=== PATIENT | male | born 1945 | race Caucasian/White ===

== ENCOUNTER 2020-02-26 13:10 | Emergency (ER) | payer OTHER ==
--- NOTE | 2020-02-26 13:21 | PDOC ---
History of Present Illness - General Chief Complaint: Lightheaded Stated Complaint: unknown, cardiology issue x 5 years Time Seen by Provider: 02/26/20 13:12 History Source: Patient Exam Limitations: No Limitations - History of Present Illness Initial Comments: 75 year old male with PMH HTN, HLD, prostate CA, atrial fibrillation on Xarelto sent to ED from pain management clinic for abnormal EKG. Pt reported he has had no new symptoms lately, denied chest pain, shortness of breath, vomiting, lightheadedness, dizziness, passing out, recent illness or any other symptoms. Pt reported he had the original EKG performed at his pain management doctors office on 02/01/20, but the doctor was unable to get into contact with him. He returned to the office today, where another EKG was performed showing atrial fibrillation, prompting his pain management physician to send him to the ED. He brought both of those EKGs with him today. Pt denied all complaints. ROS General: denied fever, chills, generalized weakness. HEENT: denied sore throat, rhinorrhea, ear pain. Cardiovascular: denied chest pain, palpitations, syncope, diaphoresis. Respiratory: denied shortness of breath, cough, sputum production, hemoptysis. Gastrointestinal: denied abdominal pain, nausea, vomiting, diarrhea, constipation, blood in stool. Genitourinary: denied dysuria, increased urinary frequency, hematuria, urinary incontinence, flank pain. Back: denied back pain. Musculoskeletal: denied joint pain, muscle pain, joint swelling. Neurological: denied headache, dizziness, numbness, tingling, weakness. Integumentary: denied rash, laceration, abrasion. Hematologic/Lymphatic: denied bruising or bleeding. PE Constitutional: Well-nourished, Well-developed, appearing stated age. HEENT: head is normocephalic, atraumatic. EOMI. PERRLA. Neck: supple. Full ROM. Cardiovascular: irregularly irrregular heart rhythm. no tachycardia. Normal S1 and S2. no murmurs. no pericardial friction rub. Respiratory: clear to auscultation bilaterally. no crackles, rhonchi or wheezing. no stridor. Gastrointestinal: soft, flat, nontender. normal bowel sounds. no rebound, guarding, or masses. Extremities: peripheral pulses intact and equal. no lower extremity edema noted. Neurological: CN 2-12 grossly intact. moves all four extremities. Psych: awake, alert, oriented x3. follows commands. answers questions jimmy ropriately. Past History - Medical History Allergies/Adverse Reactions: Allergies Allergy/AdvReac Type Severity Reaction Status Date / Time No Known Allergies Allergy Verified 02/26/20 13:12 Home Medications: Ambulatory Orders Amlodipine Besylate/Benazepril [Lotrel 10-20 mg Capsule] 1 each PO DAILY 02/24/15 Atorvastatin Ca [Lipitor -] 20 mg PO HS 02/24/15 Furosemide 20 mg PO DAILY 02/24/15 HTN: Yes Hypercholesterolemia: Yes - Psycho-Social/Smoking History Smoking History: Never smoked Medical Decision Making - Medical Decision Making 75 year old male with above PMH sent to ED From pain management for abnormal EKG. Initial Vital Signs Temp Pulse Resp BP Pulse Ox 98.3 F 79 20 139/83 97 02/26/20 13:11 02/26/20 13:11 02/26/20 13:11 02/26/20 13:11 02/26/20 13:11 EKG performed on 02/01/20 shows atrial fibrillation with a rate in the 70s. EKG performed out patient on 02/26/20 shows atrial fibrillation with a rate in the 70s. EKG performed today at [facility] shows atrial fibrillation without rapid ventricular response. Pt has no complaints. Atrial fibrillation likely to be chronic in nature, pt to follow up with PCP and cardiology. Will provide cardiology referral. Discharge - Discharge Information Problems reviewed: Yes Clinical Impression/Diagnosis: Atrial fibrillation Condition: Stable Disposition: HOME - Admission No - Follow up/Referral Referrals: Ronn Meng MD [Staff Physician] - Tae Marsh MD [Staff Physician] - - Patient Discharge Instructions Patient Printed Discharge Instructions: DI for Atrial Fibrillation Additional Instructions: You have an irregular heart rhythm - called atrial fibrillation. When this heart rate is slow, it is not dangerous. You are already anticoagulated - or on a blood thinner - which will protect you from blood clots coming from the heart. Follow up with a repair service dispatcher within 3 days, regarding your ER visit and EKGs. I have provided you with a referral. Return to the ER for chest pain, shortness of breath, vomiting, lightheadedness, increasing swelling of your legs. - Post Discharge Activity
[2020-02-26 13:23] VITALS: BP 139/83; PULSE 79; TEMP 98.3; BMI 37.3
--- NOTE | 2020-02-26 13:38 | PDOC ---
Attending Attestation - Resident Resident Name: Lamar Nunez - ED Attending Attestation I have performed the following: I have examined & evaluated the patient, The case was reviewed & discussed with the resident, I agree w/resident's findings & plan, Exceptions are as noted - HPI HPI: 02/26/20 13:38 75 M with h/o HTN, HLD, prostate CA, afib on xarelto, presents to ED after being referred by his pain management doctor for atrial fibrillation. Per pt, he has carried this diagnosis for years. Denies any new complaints today. Denies CP/SOB/palpitations. I spoke with pt's pain management doctor, who believed his atrial fibrillation to be new. - Physicial Exam PE: 02/26/20 13:40 See resident exam - Medical Decision Making 02/26/20 13:40 75 M here for evaluation of his atrial fibrillation. This is a known issue. Pt is rate controlled and appropriately anticoagulated. No complaints today. No indication for further evaluation. - F/u cardiology Pt is well appearing, with normal vitals. Clinically stable for DC at this time. I discussed the physical exam findings, ancillary test results and final diagnoses with the patient. I answered all of the patient's questions. The patient was satisfied with the care received and felt comfortable with the discharge plan and treatment plan. The patient agrees to follow up with the primary care physician within 24-72 hours. Discharge - Discharge Information Problems reviewed: Yes Clinical Impression/Diagnosis: Atrial fibrillation Condition: Stable Disposition: HOME - Follow up/Referral Referrals: Tae Marsh MD [Staff Physician] - Ronn Meng MD [Staff Physician] - - Patient Discharge Instructions Patient Printed Discharge Instructions: DI for Atrial Fibrillation Additional Instructions: You have an irregular heart rhythm - called atrial fibrillation. When this heart rate is slow, it is not dangerous. You are already anticoagulated - or on a blood thinner - which will protect you from blood clots coming from the heart. Follow up with a neonatal icu coordinator within 3 days, regarding your ER visit and EKGs. I have provided you with a referral. Return to the ER for chest pain, shortness of breath, vomiting, lightheadedness, increasing swelling of your legs. - Post Discharge Activity
--- NOTE | 2020-02-26 15:08 | EKG ---
Test Reason : Blood Pressure : / mmHG Vent. Rate : 080 BPM Atrial Rate : 081 BPM P-R Int : 000 ms QRS Dur : 088 ms QT Int : 386 ms P-R-T Axes : 000 016 019 degrees QTc Int : 445 ms ATRIAL FIBRILLATION ABNORMAL ECG NO PREVIOUS ECGS AVAILABLE Confirmed by Angel Gonzales MD ([id number]) on 02/26/2020 3:07:54 PM Referred By: CORDELL CHRISTENSEN Confirmed By:nAgel Gonzales MD
== END 2020-02-26 13:49 | disposition home or self-care (01) ==
LOC: FER 13:10
DX: I48.91 Unspecified atrial fibrillation (principal)
CPT/HCPCS: 93005; 99283-25

== ENCOUNTER 2022-09-02 03:53 | Day surgery (SDC) | payer OTHER ==
[2022-08-31 10:38] VITALS: BMI 27.3
[2022-09-02 13:39] VITALS: BP 129/77; PULSE 80; RESP 18; TEMP 98
[2022-09-02] MEDS ORDERED: LIDOCAINE HCL 1%, 10 MG/ML (20ML VIAL) ONE (14:26)
[2022-09-02] MEDS ORDERED: HEPARIN NA (PORCINE) 5,000 UNITS/ML 1ML VIAL ONE (14:26)
== END 2022-09-02 16:50 ==
LOC: JASU-SURG 03:53
PROVIDERS: ATTEND Surgery Vascular Surgery
DX: Z53.8 Procedure and treatment not carried out for other reasons (principal)
CPT/HCPCS: J1644

== ENCOUNTER 2024-01-04 10:15 | Emergency (ER) | payer OTHER ==
[2024-01-04 10:48] VITALS: BP 106/59; PULSE 68; RESP 18; TEMP 98.1; BMI 37.8
== END 2024-01-04 13:48 | disposition home or self-care (01) ==
LOC: JER 10:15
DX: K91.840 Postprocedural hemorrhage of a digestive system organ or structure following a digestive system procedure (principal)
CPT/HCPCS: 99283-25

== ENCOUNTER 2024-03-16 10:34 | Inpatient (IN) | payer OTHER ==
[2024-03-16 11:35] VITALS: BMI 36.2
[2024-03-16] MEDS ORDERED: FUROSEMIDE 40 MG/4 ML INJECTABLE VIAL ONE (12:07)
[2024-03-16] MEDS: ALBUTEROL SO4 2.5/IPRATROPIUM 0.5 INH SOL 3 ML VIAL.NEB. NEB SCH (12:34)
[2024-03-16] MEDS: FUROSEMIDE 40 MG/4 ML INJECTABLE VIAL IVPUSH ONE (12:34)
[2024-03-16] MEDS ORDERED: methylPREDNISolone NA SUCC 125 MG/2 ML VIAL ONE (12:38)
[2024-03-16] MEDS: SODIUM CHLORIDE 0.9% 500 ML INFUS.BAG IV ONE (12:49)
[2024-03-16] MEDS: methylPREDNISolone NA SUCC 125 MG/2 ML VIAL IVPUSH ONE (12:49)
[2024-03-16 12:59] LABS: ACTIVATED PTT 43.9 SECONDS (25.2-36.5); INR 1.6 (0.83-1.09); PROTHROMBIN TIME (PATIENT) 18.2 SEC (9.7-13.0)
[2024-03-16 13:10] LABS: POTASSIUM 4.5 mmol/L (3.5-5.1)
[2024-03-16 13:12] LABS: ALBUMIN 3.6 g/dl (3.4-5.0); CALCIUM 8.5 mg/dL (8.5-10.1)
[2024-03-16 13:13] LABS: BLOOD UREA NITROGEN 12.4 mg/dL (7-18)
[2024-03-16 13:17] LABS: BILIRUBIN,TOTAL 0.6 mg/dL (0.2-1); TOT PROT 6.4 g/dl (6.4-8.2)
[2024-03-16 13:17] LABS: BASO % 0.2 % (0-2.0); HEMATOCRIT 31.6 % (35.4-49); HEMOGLOBIN 9.8 GM/dL (11.7-16.9); LYMPH % 3.8 % (8-40); MCH 24.8 pg (25.7-33.7); MEAN CELL VOLUME 79.8 fl (80-96); MEAN PLT VOLUME 7.5 fl (7.5-11.1); MONO % 7.9 % (3.8-10.2); NEUT % 87.1 % (42.8-82.8); PLATELET COUNT 336 10^3/uL (134-434); RBC 3.96 M/mm3 (4.00-5.60); RDW 16.1 % (11.9-15.9); WHITE BLOOD COUNT 12.2 K/mm3 (4.0-10.0)
[2024-03-16 13:21] LABS: VENOUS BASE EXCESS 0.4 mmol/L (-2-2); VENOUS O2 SATURATION 64.9 % (70-80); VENOUS PCO2 59.4 mmHg (38-52); VENOUS PH 7.289 (7.310-7.410)
[2024-03-16 13:21] LABS: N-TERMINAL BNP 1612.7 pg/ml (5-450)
[2024-03-16] MEDS ORDERED: traMADol HCL 50 MG TABLET PO PRN (17:15)
[2024-03-16] MEDS ORDERED: hydrALAZINE HCL 10 MG TABLET ONE (17:33)
[2024-03-16] MEDS ORDERED: FERROUS SO4 325 MG TABLET (FP) ONE (17:33)
[2024-03-16] MEDS: hydrALAZINE HCL 10 MG TABLET PO SCH (17:40)
[2024-03-16] MEDS: FERROUS SO4 325 MG TABLET (FP) PO SCH (17:40)
[2024-03-16] MEDS: MELATONIN 5 MG TABLETS PO SCH (21:27)
[2024-03-16] MEDS: MEMANTINE HCL 5 MG TABLET (UD) PO SCH (21:27)
[2024-03-16] MEDS: GABAPENTIN 100 MG CAPSULE PO SCH (21:27)
[2024-03-16] MEDS: BUDESONIDE/FORMETEROL FUMARATE 80/4.5 mcg INHALER IH SCH (21:33)
[2024-03-17] MEDS: FAMOTIDINE 20 MG TABLET PO SCH (06:34)
[2024-03-17 08:27] LABS: HEMATOCRIT 31.3 % (35.4-49); HEMOGLOBIN 10.1 GM/dL (11.7-16.9); MCH 25.8 pg (25.7-33.7); MCHC 32.3 g/dl (32.0-35.9); MEAN CELL VOLUME 79.9 fl (80-96); MEAN PLT VOLUME 7.9 fl (7.5-11.1); PLATELET COUNT 330 10^3/uL (134-434); RBC 3.92 M/mm3 (4.00-5.60); RDW 16.3 % (11.9-15.9); WHITE BLOOD COUNT 9.2 K/mm3 (4.0-10.0)
[2024-03-17 08:40] LABS: POTASSIUM 3.9 mmol/L (3.5-5.1)
[2024-03-17 08:48] LABS: ALBUMIN 3.5 g/dl (3.4-5.0)
[2024-03-17 08:49] LABS: CREATININE 1.1 mg/dL (0.55-1.3); MAGNESIUM 2.1 mg/dL (1.8-2.4)
[2024-03-17 08:50] LABS: TOT PROT 6.2 g/dl (6.4-8.2)
[2024-03-17 08:51] LABS: BLOOD UREA NITROGEN 16.4 mg/dL (7-18); CALCIUM 8.5 mg/dL (8.5-10.1)
[2024-03-17 08:54] LABS: PHOSPHOROUS 3.2 mg/dL (2.5-4.9)
[2024-03-17 08:55] LABS: BILIRUBIN,TOTAL 0.8 mg/dL (0.2-1)
[2024-03-17 10:03] LABS: ANISOCYTOSIS 0; MACROCYTOSIS 0; OVALOCYTE 1+
[2024-03-17] MEDS: TAMSULOSIN HCL 0.4 MG CAP PO SCH (10:24)
[2024-03-17] MEDS: metoPROLOL SUCCINATE 25 MG TAB.SR.24H (FP) PO SCH (10:39)
[2024-03-17] MEDS: FUROSEMIDE 40 MG/4 ML INJECTABLE VIAL IVPUSH SCH (10:39)
[2024-03-17] MEDS: MAGNESIUM OXIDE 400 MG TABLET (FP) PO SCH (10:39)
[2024-03-17] MEDS: amLODIPine BESYLATE 10 MG TABLET (FP) PO SCH (10:40)
[2024-03-17] MEDS: TIOTROPIUM BROMIDE 2.5 MCG (SPIRIVA) RESPIMAT INHALER IH SCH (11:23)
[2024-03-17] MEDS: RIVAROXABAN 20 MG TABLET PO SCH (17:36)
[2024-03-18 11:06] LABS: HEMATOCRIT 32.2 % (35.4-49); MCH 25.4 pg (25.7-33.7); MCHC 31.2 g/dl (32.0-35.9); MEAN CELL VOLUME 81.3 fl (80-96); MEAN PLT VOLUME 7.6 fl (7.5-11.1); PLATELET COUNT 331 10^3/uL (134-434); RBC 3.96 M/mm3 (4.00-5.60); RDW 16.5 % (11.9-15.9); WHITE BLOOD COUNT 13.4 K/mm3 (4.0-10.0)
[2024-03-18] MEDS: hydrALAZINE HCL 10 MG TABLET PO SCH (13:58)
[2024-03-19 08:11] LABS: HEMATOCRIT 30.2 % (35.4-49); HEMOGLOBIN 9.7 GM/dL (11.7-16.9); MCH 25.7 pg (25.7-33.7); MCHC 32.1 g/dl (32.0-35.9); MEAN CELL VOLUME 80.1 fl (80-96); MEAN PLT VOLUME 7.6 fl (7.5-11.1); PLATELET COUNT 294 10^3/uL (134-434); RBC 3.77 M/mm3 (4.00-5.60); RDW 16.4 % (11.9-15.9); WHITE BLOOD COUNT 11.3 K/mm3 (4.0-10.0)
[2024-03-19 08:19] LABS: POTASSIUM 3.5 mmol/L (3.5-5.1)
[2024-03-19 08:23] LABS: BLOOD UREA NITROGEN 21.6 mg/dL (7-18)
[2024-03-19 08:24] LABS: CALCIUM 8.2 mg/dL (8.5-10.1)
[2024-03-19 08:27] LABS: CREATININE 0.9 mg/dL (0.55-1.3); PHOSPHOROUS 3.1 mg/dL (2.5-4.9)
[2024-03-19] MEDS: LIDOCAINE 5% TOPICAL PATCH TP ONE (14:08)
[2024-03-19] MEDS: POLYETHYLENE GLYCOL (HEALTHYLAX) 3350 17 GM PACKET PO SCH (16:28)
[2024-03-19] MEDS: FUROSEMIDE 40 MG/4 ML INJECTABLE VIAL IVPUSH SCH (16:49)
[2024-03-19] MEDS: SENNOSIDES 8.6MG TABLET (FP) PO PRN (21:25)
[2024-03-19] MEDS: LIDOCAINE PATCH REMOVAL MC SCH (21:26)
[2024-03-20 06:58] LABS: HEMATOCRIT 31.6 % (35.4-49); MCH 25.5 pg (25.7-33.7); MCHC 31.6 g/dl (32.0-35.9); MEAN CELL VOLUME 80.6 fl (80-96); MEAN PLT VOLUME 7.3 fl (7.5-11.1); PLATELET COUNT 309 10^3/uL (134-434); RBC 3.92 M/mm3 (4.00-5.60); RDW 16.6 % (11.9-15.9); WHITE BLOOD COUNT 11.2 K/mm3 (4.0-10.0)
[2024-03-20 07:26] LABS: BLOOD UREA NITROGEN 14.8 mg/dL (7-18); CALCIUM 8.1 mg/dL (8.5-10.1)
[2024-03-20 07:30] LABS: CREATININE 0.9 mg/dL (0.55-1.3)
[2024-03-20] MEDS: LOSARTAN POTASSIUM 25 MG TABLET PO SCH (10:47)
[2024-03-20] MEDS: amLODIPine BESYLATE 5 MG TABLET (FP) PO SCH (10:50)
[2024-03-20] MEDS: POTASSIUM CHLORIDE ORAL LIQUID 20 MEQ/15 ML PO ONE ×2 (18:09→21:24)
[2024-03-20] MEDS: MAGNESIUM SULF 50% (8.12 MEQ/2 ML-1 GM VIAL) IVPB ONE (18:09)
[2024-03-21 07:46] LABS: HEMATOCRIT 34.6 % (35.4-49); HEMOGLOBIN 11.1 GM/dL (11.7-16.9); MCH 25.8 pg (25.7-33.7); MCHC 31.9 g/dl (32.0-35.9); MEAN PLT VOLUME 7.8 fl (7.5-11.1); PLATELET COUNT 308 10^3/uL (134-434); RBC 4.28 M/mm3 (4.00-5.60); RDW 16.7 % (11.9-15.9); WHITE BLOOD COUNT 9.9 K/mm3 (4.0-10.0)
[2024-03-21 08:08] LABS: POTASSIUM 3.2 mmol/L (3.5-5.1)
[2024-03-21 08:10] LABS: BLOOD UREA NITROGEN 13.2 mg/dL (7-18); CALCIUM 8.1 mg/dL (8.5-10.1); MAGNESIUM 2.4 mg/dL (1.8-2.4)
[2024-03-21] MEDS: POTASSIUM CHLORIDE ORAL LIQUID 20 MEQ/15 ML PO ONE ×2 (11:55→15:39)
[2024-03-22 07:10] LABS: HEMATOCRIT 36.8 % (35.4-49); HEMOGLOBIN 11.3 GM/dL (11.7-16.9); MCHC 30.7 g/dl (32.0-35.9); MEAN CELL VOLUME 81.4 fl (80-96); MEAN PLT VOLUME 7.7 fl (7.5-11.1); PLATELET COUNT 318 10^3/uL (134-434); RBC 4.52 M/mm3 (4.00-5.60); RDW 16.8 % (11.9-15.9)
[2024-03-22 07:34] LABS: POTASSIUM 3.3 mmol/L (3.5-5.1)
[2024-03-22 07:38] LABS: CALCIUM 8.4 mg/dL (8.5-10.1)
[2024-03-22 07:39] LABS: ALBUMIN 3.2 g/dl (3.4-5.0); BLOOD UREA NITROGEN 14.6 mg/dL (7-18)
[2024-03-22 07:42] LABS: CREATININE 0.9 mg/dL (0.55-1.3)
[2024-03-22 07:43] LABS: BILIRUBIN,TOTAL 0.7 mg/dL (0.2-1); TOT PROT 5.7 g/dl (6.4-8.2)
[2024-03-22] MEDS: FUROSEMIDE 20 MG TABLET (FP) PO SCH (09:24)
[2024-03-22] MEDS: KCL 10 MEQ IVPB 10 MEQ/100 ML INFUS.BAG IVPB SCH (09:41)
[2024-03-22] MEDS: POTASSIUM CHLORIDE ORAL LIQUID 20 MEQ/15 ML PO ONE (15:41)
[2024-03-22 16:38] LABS: POTASSIUM 3.7 mmol/L (3.5-5.1)
[2024-03-22 16:42] LABS: CALCIUM 8.1 mg/dL (8.5-10.1)
[2024-03-22 16:47] LABS: CREATININE 1.3 mg/dL (0.55-1.3)
[2024-03-22] MEDS: RIVAROXABAN 20 MG TABLET PO SCH (17:25)
[2024-03-23 08:37] VITALS: PULSE 79
[2024-03-23 15:42] VITALS: BP 110/57; RESP 18; TEMP 99
== END 2024-03-23 16:47 | DRG 291 ==
LOC: JER 10:34 → JERBED 15:19 → J4W 19:13
PROVIDERS: ADMIT Internal Medicine; ATTEND Internal Medicine
DX: I11.0 Hypertensive heart disease with heart failure (principal); I50.31 Acute diastolic (congestive) heart failure; I48.19 Other persistent atrial fibrillation; N40.0 Benign prostatic hyperplasia without lower urinary tract symptoms; K21.9 Gastro-esophageal reflux disease without esophagitis; F03.90 Unspecified dementia, unspecified severity, without behavioral disturbance, psychotic disturbance, mood disturbance, and anxiety; J44.9 Chronic obstructive pulmonary disease, unspecified; I73.9 Peripheral vascular disease, unspecified; G47.00 Insomnia, unspecified; R10.12 Left upper quadrant pain; E87.6 Hypokalemia; K59.00 Constipation, unspecified; K76.89 Other specified diseases of liver; N28.1 Cyst of kidney, acquired; Z85.46 Personal history of malignant neoplasm of prostate; Z86.73 Personal history of transient ischemic attack (TIA), and cerebral infarction without residual deficits
CPT/HCPCS: 0241U-QW; 36415; 71045-TC-FY; 74176-TC; 74177-TC; 80048; 80053; 80061; 82803; 83036; 83735; 83880; 84100; 84484; 85025; 85027; 85379; 85610; 85730; 86850; 86900; 86901; 93005; 93010; 93306-TC; 94660; 97116-GP; 97162-GP; 99291; Q9967

== ENCOUNTER 2024-11-01 20:04 | Observation (INO) | payer OTHER ==
[2024-11-01 20:30] VITALS: BMI 30.7
[2024-11-01 21:32] LABS: HEMATOCRIT 46.3 % (40.1-51.0); HEMOGLOBIN 15.2 g/dL (13.7-17.5); MCHC 32.8 g/dl (32.3-36.5); MEAN PLT VOLUME 9.9 fl (9.4-12.4); PLATELET COUNT 379 x10^3/uL (163-337); RDW 12.8 % (12.2-16.6)
[2024-11-01 21:41] LABS: INR 1.08 (0.83-1.09); PROTHROMBIN TIME (PATIENT) 11.9 SEC (9.7-13.0)
[2024-11-01 21:44] LABS: ACTIVATED PTT 29.9 SECONDS (25.2-36.5)
[2024-11-01 21:57] LABS: POTASSIUM 4.5 mmol/L (3.5-5.1)
[2024-11-01 21:59] LABS: CALCIUM 9.7 mg/dL (8.5-10.1)
[2024-11-01 22:00] LABS: ALBUMIN 3.6 g/dl (3.4-5.0); BLOOD UREA NITROGEN 21.9 mg/dL (7-18)
[2024-11-01 22:03] LABS: CREATININE 1.1 mg/dL (0.55-1.3)
[2024-11-01 22:05] LABS: BILIRUBIN,TOTAL 0.5 mg/dL (0.2-1)
[2024-11-01 22:17] LABS: VENOUS BASE EXCESS 1.5 mmol/L (-2-2); VENOUS O2 SATURATION 93.7 % (70-80); VENOUS PH 7.458 (7.310-7.410)
[2024-11-02 00:31] LABS: EPI CELLS >36 /uL (0-25.1); HYALINE CASTS 76 /uL (0-3.1); URINE APPEARANCE CLOUDY; URINE BACTERIA 1371 /uL (0-1359); URINE BILIRUBIN NEGATIVE (NEGATIVE); URINE COLOR YELLOW; URINE GLUCOSE (UA) TRACE (NEGATIVE); URINE KETONE NEGATIVE (NEGATIVE); URINE LEUK ESTERASE NEGATIVE (NEGATIVE); URINE NITRITE NEGATIVE (NEGATIVE); URINE PROTEIN 1+ (NEGATIVE); URINE RBC 20 /uL (0-23.9); URINE UROBILINOGEN 0.2 mg/dL (0.2-1.0); URINE WBC 19 /uL (0-25.8)
[2024-11-02] MEDS ORDERED: REMDESIVIR 200 MG in SODIUM CHLORIDE 250 ML IVPB ONE ×2 (01:54→01:56)
[2024-11-02] MEDS: REMDESIVIR 200 MG in SODIUM CHLORIDE 250 ML IVPB ONE (03:36)
[2024-11-02] MEDS ORDERED: PATIENT'S OWN MEDICATION (NON-FORMULARY) (Ferrous Sulfate [Ferrous Sulfate] 325 MG Tablet) PO SCH (03:45)
[2024-11-02] MEDS ORDERED: LACTULOSE 20 GM/30 ML UDC (FOR ORAL USE ONLY) PO PRN (04:58)
[2024-11-02] MEDS: FUROSEMIDE 40 MG TABLET (FP) PO SCH (06:17)
[2024-11-02] MEDS: FERROUS SO4 325 MG TABLET (FP) PO SCH (06:17)
[2024-11-02] MEDS: FAMOTIDINE 20 MG TABLET PO SCH (06:17)
[2024-11-02] MEDS: INSULIN ASPART SLIDING SCALE (NOVOLOG) 1 VIAL SQ SCH (06:18)
[2024-11-02] MEDS: hydrALAZINE HCL 10 MG TABLET PO SCH (06:19)
[2024-11-02 07:56] LABS: HEMATOCRIT 41.8 % (40.1-51.0); HEMOGLOBIN 13.7 g/dL (13.7-17.5); MCHC 32.8 g/dl (32.3-36.5); MEAN CELL VOLUME 91.1 fl (79.0-92.2); MEAN PLT VOLUME 10.2 fl (9.4-12.4); PLATELET COUNT 332 x10^3/uL (163-337); RDW 12.9 % (12.2-16.6)
[2024-11-02 08:16] LABS: POTASSIUM 3.9 mmol/L (3.5-5.1)
[2024-11-02 08:25] LABS: ALBUMIN 3.2 g/dl (3.4-5.0); BLOOD UREA NITROGEN 18.8 mg/dL (7-18); CALCIUM 9.2 mg/dL (8.5-10.1)
[2024-11-02 08:26] LABS: BILIRUBIN,TOTAL 0.5 mg/dL (0.2-1); CREATININE 0.8 mg/dL (0.55-1.3)
[2024-11-02] MEDS ORDERED: metoPROLOL SUCCINATE 25 MG TAB.SR.24H (FP) PO SCH (10:00)
[2024-11-02] MEDS: CALCIUM 500MG/VIT-D 200 UNITS COMBO TABLET (FP) PO SCH (10:05)
[2024-11-02] MEDS: GABAPENTIN 100 MG CAPSULE PO SCH (10:05)
[2024-11-02] MEDS: TAMSULOSIN HCL 0.4 MG CAP PO SCH (10:05)
[2024-11-02] MEDS: SPIRONOLACTONE 25 MG TABLET PO SCH (10:05)
[2024-11-02] MEDS: CHOLECALCIFEROL (VIT D3) 1,000 UNIT (25 MCG) TABLET PO SCH (10:05)
[2024-11-02] MEDS: MAGNESIUM OXIDE 400 MG TABLET (FP) PO SCH (10:05)
[2024-11-02] MEDS: metoPROLOL SUCCINATE 25 MG TAB.SR.24H (FP) PO SCH (10:05)
[2024-11-02] MEDS: MEMANTINE HCL 5 MG TABLET (UD) PO SCH (10:05)
[2024-11-02] MEDS: amLODIPine BESYLATE 5 MG TABLET (FP) PO SCH (10:05)
[2024-11-02] MEDS: LOSARTAN POTASSIUM 25 MG TABLET PO SCH (10:06)
[2024-11-02] MEDS: BUDESONIDE/FORMETEROL FUMARATE 80/4.5 mcg INHALER IH SCH (10:06)
[2024-11-02] MEDS: risperiDONE 1 MG TABLET PO SCH (10:06)
[2024-11-02] MEDS: EMPAGLIFLOZIN (JARDIANCE) 10 MG TABLET PO SCH (11:24)
[2024-11-02] MEDS: RIVAROXABAN 20 MG TABLET PO SCH (17:47)
[2024-11-02 21:23] VITALS: BP 105/61; PULSE 68; RESP 18; TEMP 98.1
[2024-11-02] MEDS: traZODone HCL 50 MG TABLET (FP) PO SCH (21:36)
[2024-11-02] MEDS: MELATONIN 5 MG TABLETS PO SCH (21:36)
[2024-11-02] MEDS ORDERED: EMPAGLIFLOZIN (JARDIANCE) 10 MG TABLET PO SCH (23:41)
[2024-11-03] MEDS ORDERED: REMDESIVIR 100 MG in SODIUM CHLORIDE 250 ML IVPB SCH (10:00)
== END 2024-11-02 23:30 ==
LOC: JER 20:04 → JERBED 11-02 00:45 → J6S 11-02 02:34
PROVIDERS: ADMIT Internal Medicine; ATTEND Internal Medicine
PROC: 3E033GC Introduction of Other Therapeutic Substance into Peripheral Vein, Percutaneous Approach (ICD-10-PCS; principal; 2024-11-02)
DX: U07.1 COVID-19 (principal); R73.9 Hyperglycemia, unspecified; I10 Essential (primary) hypertension; I48.91 Unspecified atrial fibrillation; F03.90 Unspecified dementia, unspecified severity, without behavioral disturbance, psychotic disturbance, mood disturbance, and anxiety; J44.9 Chronic obstructive pulmonary disease, unspecified; I73.9 Peripheral vascular disease, unspecified
CPT/HCPCS: 0241U-QW; 36415; 71045-TC-FY; 80053; 81003; 82010; 82803; 82962; 83036; 84484; 85027; 85610; 85730; 86140; 87086; 93005; 93010; 96374; 97116-GP; 97161-GP; 99285-25; G0378; J0248